=== PATIENT | female | born 1950 | race Caucasian/White ===

== ENCOUNTER → 2021-10-19 | Day surgery (SDC) | payer OTHER, BC ==
--- NOTE | 2021-10-19 11:35 | RAD REPORT ---
EXAM DESCRIPTION: US - Breast Core BX w/US Guidance - 10/19/2021 10:08 am CLINICAL HISTORY: ICD R 92.8 COMPARISON: June 30, 2020 ultrasound TECHNIQUE: The risks, benefits alternatives to the procedure were explained to the patient and infor med consent obtained. Skin and subcutaneous tissues anesthetized with lidocaine. Under sonographic guidance, two 14 gauge vacuum assisted core biopsies of the mass at 12 o'clock with in the right breast obtained. 2 centimeter specimens taken. Tissue given to pathology. Subsequently a localizing clip was placed into the mass. Patient experienced no immediate complication IMPRESSION: Vacuum assisted core biopsies of the right breast mass
== END ==
LOC: DS 08:00
PROVIDERS: ATTEND Surgery
DX: C50.811 Malignant neoplasm of overlapping sites of right female breast (principal); Z17.0 Estrogen receptor positive status [ER+]
CPT/HCPCS: 19083; 88305

== ENCOUNTER 2021-11-04 06:04 | Day surgery (SDC) | payer OTHER, BC ==
--- NOTE | 2021-11-02 14:19 | RAD REPORT ---
EXAM DESCRIPTION: RAD - Chest Pa And Lat (2 Views) - 11/02/2021 2:07 pm CLINICAL HISTORY: Pre op pending lumpectomy Chest pain. COMPARISON: Breast Core BX w/US Guidance dated 10/19/2021 FINDINGS: The lungs are clear. The heart is normal in size. No displaced fractures. IMPRESSION: No acute or concerning finding suspected.
[2021-11-02 15:10] LABS: Absolute Lymphocytes (CBC) 2.5 K/uL (0.7-4.9); Hematocrit 39.8 % (36.0-45.0); Lymphocytes % 30.2 % (15.3-44.8); MCV 89.2 fL (80-100); MPV 8.5 fL (7.6-11.3); RBC Red Blood Cell Count 4.46 M/uL (3.86-4.86)
[2021-11-02 15:25] LABS: Potassium 4.2 mmol/L (3.5-5.1)
[2021-11-02 15:41] LABS: SARS-CoV-2 Antigen Rapid Res Negative (Negative)
--- NOTE | 2021-11-03 13:39 | EKG ---
Test Date: 2021-11-02 Test Time: 13:46:07 Cigar Head Perforator: AC MEASUREMENT RESULTS: Intervals: Rate: 44 OK: 188 QRSD: 94 QT: 460 QTc: 393 [place]: P: 84 OK: 188 QRS: 75 T: 76 INTERPRETIVE STATEMENTS: Marked sinus bradycardia Possible Left atrial enlargement Abnormal ECG No previous ECG available for comparison Electronically Signed On 11-03-21 13:38:10 CDT by Zeb Short
[2021-11-04] MEDS ORDERED: Ringers Lactate 1,000 ML IV ONE (06:39)
[2021-11-04] MEDS: CEFAZOLIN SODIUM 1 GM/VIAL ONE ×2 (09:23→10:03)
[2021-11-04] MEDS: METHYLENE BLUE 0.5% 10 ML AMP ONE ×2 (09:23→10:20)
[2021-11-04] MEDS: BUPIVACAINE 0.25% PF 10 ML VIAL ONE ×2 (09:24→10:30)
[2021-11-04] MEDS ORDERED: FENTANYL CITR 100 MCG/2 ML ONE (09:59)
[2021-11-04] MEDS ORDERED: propofoL 200 MG/20 ML VIAL IV ONE (09:59)
[2021-11-04] MEDS ORDERED: MIDAZOLAM HCL 2 MG/2 ML INJ ONE (09:59)
[2021-11-04] MEDS ORDERED: dexAMETHasone 10 MG/ML VIAL ONE ×2 (09:59→12:27)
[2021-11-04] MEDS ORDERED: ONDANSETRON 4 MG/2 ML VIAL ONE (10:00)
[2021-11-04] MEDS ORDERED: KETOROLAC 30 MG/ML INJ ONE (10:00)
[2021-11-04] MEDS ORDERED: LIDOCAINE 2% MPF 5 ML VIAL ONE (10:00)
[2021-11-04] MEDS ORDERED: NS 0.9% VIAL 10 ML ONE (10:28)
[2021-11-04] MEDS: Ringers Lactate 1,000 ML IV ONE ×2 (11:09→11:15)
--- NOTE | 2021-11-04 11:27 | RAD REPORT ---
EXAM DESCRIPTION: US - Surgical Specimen - 11/04/2021 11:20 am FINDINGS: Sonographic imaging was performed of the surgical specimen. An approximately 19 millimeter lobulated heterogeneous hypoechoic mass is present. There are numerous punctate hyperechoic foci wit hin the mass that are probably calcifications. Size of the mass is similar to the mass seen on the 10/19/2021 ultrasound-guided core biopsy procedur e. A localizing clip was placed at the time of the 10/19/2021 core biopsy. A clip is not clearly defined in the specimen. Mammography of the specimen could be performed if there is need to search for the localization clip.
[2021-11-04] MEDS ORDERED: BUPIVACAINE 0.25% PF 10 ML VIAL ONE (12:27)
[2021-11-04] MEDS: MEPERIDINE HCL 25 MG/ML SYR ONE ×2 (14:38→15:19)
[2021-11-04] MEDS ORDERED: HYDROMORPHONE HCL 1 MG/ML INJ ONE (14:50)
[2021-11-04 15:41] VITALS: BP 139/75; TEMP 97.5; O2SAT 100
[2021-11-04] MEDS ORDERED: HYDROCODONE/APAP 7.5/325 MG TAB PO ONE (15:51)
[2021-11-04] MEDS ORDERED: HYDROCODONE/APAP 7.5/325 MG TAB ONE (16:03)
== END 2021-11-04 16:50 | disposition home or self-care (01) ==
LOC: OR 06:04
PROVIDERS: ATTEND Surgery
PROC: 0HBT0ZZ Excision of Right Breast, Open Approach (ICD-10-PCS; 2021-11-04)
PROC: 07B50ZX Excision of Right Axillary Lymphatic, Open Approach, Diagnostic (ICD-10-PCS; principal; 2021-11-04 09:30)
DX: C50.911 Malignant neoplasm of unspecified site of right female breast (principal); C77.3 Secondary and unspecified malignant neoplasm of axilla and upper limb lymph nodes; Z20.822 Contact with and (suspected) exposure to COVID-19; Z17.0 Estrogen receptor positive status [ER+]
CPT/HCPCS: 19302; 93005; 85025; 80048; 36415; 88331; 88305; 88307; 71046; 76098; 78195; 87811; J2704; J2001; J2250; J3010; J1100 ×2; J2175; A4216; J1170; Q9968; J7120 ×2; J2405; J0690; A9520

== ENCOUNTER 2022-12-08 08:54 | Day surgery (SDC) | payer OTHER, BC ==
[2022-12-08] MEDS: Ringers Lactate 1,000 ML IV ONE ×3 (09:30→11:15)
[2022-12-08] MEDS ORDERED: BUPIVACAINE 0.25% PF 10 ML VIAL ONE ×2 (10:57→11:15)
[2022-12-08] MEDS ORDERED: FENTANYL CITR 100 MCG/2 ML ONE (11:02)
[2022-12-08] MEDS ORDERED: propofoL 200 MG/20 ML VIAL IV ONE (11:02)
[2022-12-08] MEDS ORDERED: LIDOCAINE 2% MPF 5 ML VIAL ONE (11:02)
[2022-12-08] MEDS ORDERED: LIDOCAINE HCL/EPINEPHRINE 20 ML MDV ONE (11:15)
--- NOTE | 2022-12-08 11:57 | P.OP ---
Preoperative diagnosis: Attention to Chemotherapy Port Postoperative diagnosis: Attention to Chemotherapy Port Primary procedure: Removal of Chemotherapy Port Anesthesia: GETA + Local Estimated blood loss: <2cc Specimen: Port for ID only Findings: No infection Complications: None Transferred to: Recovery Room Condition: Good
[2022-12-08 15:23] VITALS: O2SAT 100
[2022-12-08 15:36] VITALS: BP 137/68; TEMP 97.4
--- NOTE | 2022-12-08 15:50 | EKG ---
Test Date: 2022-12-06 Test Time: 11:42:49 Disaster Recovery Manager: ANSELMO MEASUREMENT RESULTS: Intervals: Rate: 48 AK: 168 QRSD: 76 QT: 446 QTc: 398 [place]: P: 65 AK: 168 QRS: 29 T: 52 INTERPRETIVE STATEMENTS: Marked sinus bradycardia Abnormal ECG Compared to ECG 05/23/2022 08:13:56 No significant changes Electronically Signed On 12-08-22 15:43:57 CDT by Zeb Short
--- NOTE | 2022-12-08 22:13 | OP ---
Date of Procedure: 12/08/2022 Surgeon: Phillip Adkins MD, Preoperative Diagnosis: Tension in chemotherapy port. Postoperative Diagnosis: Tension in chemotherapy port. Procedure Performed: Removal of chemotherapy port from left chest wall. Anesthesia: General endotracheal plus local with 0.25% Marcaine. Estimated Blood Loss: Less than 2 cc. Specimen: Port for ID only. Findings: No infection. Complications: None. Disposition: The patient was transferred to the recovery room in good condition. Procedure In Detail: After informed consent was obtained, the patient was prepped and draped in usua l sterile fashion after adequate anesthesia was achieved. I anesthetized the area over the previous incision on the left chest wall where the port was visible. After appropriately anesthetizing the sk in, I used a previous incision as a guide, cutting down through the skin with a 15 blade down to subc utaneous tissue. Electrocautery was used to dissect circumferentially down to the subcutaneous port. The port capsule was opened at this point and 3 previously placed Prolene sutures were removed. At this point, using saturnino and the patient was placed in steep Trendelenburg position, the port was re moved at this point while holding pressure, it was sent off for pathologic examination. The patient was positioned back in neutral position. Remaining area was suctioned out until completely dry. No bleeding was appreciated throughout the entire procedure. The area was copiously irrigated once agai n and dried. Deep dermal planes were closed using interrupted 3-0 Vicryl suture. The skin was close d with a 4-0 Monocryl in running fashion. Dermabond was placed over top. The patient tolerated the procedure well without evidence of complication and transferred to PACU in good condition. All count s were correct at the end of the case. TK/MODL Voice ID: [id number] Report ID: [id number]
== END 2022-12-08 13:49 | disposition home or self-care (01) ==
LOC: OR 08:54
PROVIDERS: ATTEND Surgery
PROC: 05PY03Z Removal of Infusion Device from Upper Vein, Open Approach (ICD-10-PCS; principal; 2022-12-08 10:30)
DX: Z45.2 Encounter for adjustment and management of vascular access device (principal); Z85.3 Personal history of malignant neoplasm of breast; K21.9 Gastro-esophageal reflux disease without esophagitis
CPT/HCPCS: 93005; 88300; 36590; J2704; J2001; J3010; J7120